=== PATIENT | male | born 1960 | race Caucasian/White ===

== ENCOUNTER → 2017-05-22 | Outpatient (CLI) | payer BC ==
[~2017-05-22] MED LIST: AMLO10TA2 PO; ASPI-630 PO; DOCU-109 PO; DULO60CA6 PO; HYDR-2762 PO; METH-38 PO
--- NOTE | 2017-05-22 15:25 | EKG ---
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
[2017-05-22 16:05] LABS: BASO # 0.1 x10^3/uL (0.0-0.2); BASO % 1 % (0-3); EOS % 2 % (0-3); HEMATOCRIT 48.1 % (39.0-53.0); HEMOGLOBIN 16.3 g/dL (13.0-17.5); LYMPH # 2.3 x10^3/uL (1.0-4.8); LYMPH % 30 % (24-48); MEAN CORPUSCULAR HEMOGLOBIN 31 pg (25-35); MEAN CORPUSCULAR HGB CONC 34 g/dL (31-37); MEAN CORPUSCULAR VOLUME 93 fL (79-100); MONO % 12 % (0-9); NEUT % 55 % (31-73); PLATELET COUNT 282 x10^3/uL (140-400); RED CELL DISTRIBUTION WIDTH 12.8 % (11.5-14.5); WHITE BLOOD COUNT 7.7 x10^3/uL (4.0-11.0)
[2017-05-22 16:53] LABS: ALBUMIN 4.3 g/dL (3.4-5.0); ALBUMIN/GLOBULIN RATIO 1.2 (1.0-1.7); CALCIUM 8.8 mg/dL (8.5-10.1); CREATININE 1.2 mg/dL (0.7-1.3); POTASSIUM 3.7 mmol/L (3.5-5.1); TOTAL BILIRUBIN 0.9 mg/dL (0.2-1.0)
== END | disposition home or self-care (01) ==
LOC: SURGPAT 13:49
PROVIDERS: ATTEND Neurological Surgery
DX: M48.06 Spinal stenosis, lumbar region (principal)
CPT/HCPCS: 36415; 80053; 85027; 87641; 93005

== ENCOUNTER 2017-06-01 07:01 | Day surgery (SDC) | payer OTHER ==
[~2017-06-01] VITALS: Ht 190.5 cm; Wt 107.5 kg
[~2017-06-01 07:01] MED LIST changes: +BACITRACIN 50,000 UNIT in IV NORMAL SALINE 1000ML BAG 1,000 ML IRR ONE; -DOCU-109 PO; -HYDR-2762 PO; +HYDROmorphone 2 MG/ML VIAL IV PRN; +IV RINGERS,LACTATED 1000ML 1,000 ML IV SCH; +LIDOCAINE 1% 1 ML SYRINGE. ID PRN; -METH-38 PO; +MORPHINE SULFATE 2 MG/ML DISP.SYRIN. IV PRN; +ONDANSETRON PF 4 MG/2 ML VIAL. IV PRN; +PROCHLORPERAZINE 10 MG/2 ML VIAL. IV PRN; +fentaNYL PF VIAL 100 MCG/2 ML VIAL IV PRN
[2017-06-01] MEDS ORDERED: PROPOFOL 100 ML IV ONE (07:19)
[2017-06-01] MEDS ORDERED: PROPOFOL 20 ML IV ONE (07:24)
[2017-06-01] MEDS ORDERED: fentaNYL PF VIAL 100 MCG/2 ML VIAL ONE ×2 (07:24→10:58)
[2017-06-01] MEDS ORDERED: SUCCINYLCHOLINE 200 MG/10 ML VIAL. ONE (07:24)
[2017-06-01] MEDS ORDERED: LIDOCAINE 2% PF Vial for OR 5 ML VIAL. ONE (07:24)
[2017-06-01] MEDS ORDERED: REMIFENTANIL 2 MG VIAL. IV ONE (07:24)
[2017-06-01] MEDS ORDERED: 0.9 % SODIUM CHLORIDE 50 ML VIAL. IJ ONE (07:24)
[2017-06-01] MEDS ORDERED: GELATIN SPONGE SIZE 100. ONE (07:25)
[2017-06-01] MEDS ORDERED: ROCURONIUM 50 MG/5 ML VIAL. ONE (07:25)
[2017-06-01] MEDS ORDERED: BUPIVACAINE-EPI 0.5%-1:200000 50 ML VIAL. ONE (07:25)
[2017-06-01] MEDS ORDERED: KETOROLAC 60 MG/2 ML INJ FOR OR. ONE (07:25)
[2017-06-01] MEDS ORDERED: THROMBIN TOPICAL 20,000 UNIT SPRAY.SYRN KIT TP ONE (07:25)
[2017-06-01] MEDS ORDERED: DESFLURANE > 120 MINUTES IH ONE (08:54)
[2017-06-01] MEDS ORDERED: DEXAMETHASONE SOD PHOS 20 MG/5 ML VIAL. ONE (08:54)
[2017-06-01] MEDS ORDERED: ONDANSETRON PF 4 MG/2 ML VIAL. ONE (08:58)
--- NOTE | 2017-06-01 10:45 | DISCH ---
DISCHARGE INSTRUCTIONS Condition on Discharge Condition on Discharge: Stable Activity After Discharge Activity Instructions for Disc: Activity as tolerated, Avoid exertion Other activity instructions: no driving for a week Bathing Instructions: Shower-keep dressing dry Lifting Instructions after Dis: No heavy lifting, No pulling or pushing Diet after Discharge Additional Diet Restrictions: resume home diet Wound Incision Care Wound/Incision Care: Ice to area for comfort Other wound/incision instructi: may remove dressing in 48 hrs if dry then may shower- no soaking Contacting the after DC Call your doctor for: Concerns you may have Follow-Up Follow up with: Dr. Teixeira's nurse in 2 weeks [phone] OLY TEIXEIRA MD Jun 01, 2017 10:45
[2017-06-01] MEDS ORDERED: METH-38 PO (10:49)
[2017-06-01] MEDS ORDERED: HYDR-2762 PO (10:49)
[2017-06-01] MEDS ORDERED: DOCU-109 PO (10:49)
[2017-06-01] MEDS ORDERED: HYDROcodone/APAP 7.5/325MG 1 TAB TABLET PO ONE (11:15)
[2017-06-01 12:12] VITALS: BP 148/80
[2017-06-01] MEDS ORDERED: PHENYLEPHRINE in 0.9% NACL PF 1 MG/10 ML DISP.SYRIN. IV ONE (14:06)
--- NOTE | 2017-06-01 22:01 | OP ---
DATE OF SURGERY: 06/01/2017 PREOPERATIVE DIAGNOSIS: Lateral recess stenosis with lumbar radiculopathy, L2-L3 bilateral. POSTOPERATIVE DIAGNOSIS: Lateral recess stenosis and for with lumbar radiculopathy, L2-L3 bilateral. OPERATION PERFORMED: Bilateral hemilaminotomies with decompression of dura and nerve root L3-L4. The operation was done with EMG monitoring, fluoroscopy, microscopic dissection. TYPER: JOSE Leroy, assisted with the surgery, she assisted with the exposure of the bilateral microdecompressive surgery as well as the closure. OPERATIVE INDICATIONS: The patient is a very pleasant 57-year-old man who developed intractable back and first right and bilateral leg pain, which became more and more severe. On imaging studies, he has the above-mentioned findings and I recommended lumbar microsurgery. There was some disk bulging as well, which was contributing to the overall stenosis and I did discuss the possible microdiskectomy. He understood the surgery and the risks. He understood the technique of the operation and he wished to go ahead. DESCRIPTION OF PROCEDURE: Following general endotracheal anesthesia, the patient was positioned prone on the David table. His lumbar region was prepped and draped in standard fashion. JASON hose and AV impulse boots were applied for DVT prophylaxis. A microscope was draped. Fluoroscopy was draped and brought into field. Monitoring was established. Ancef 2 g was given less than 1 hour prior to initiation of the surgery. Using fluoroscopic guidance, a small midline incision was made over the L2-L3 interspace. I dissected down through the skin and subcutaneous tissue and placed a Billings micro disk retractor on the left side. I brought in the microscope. Using high speed air drill, I burred down a generous hemilaminotomy and then trimmed away thickened ligamentum flavum and I performed a partial foraminotomy. There was considerable scarring and compression of the root over the disk and I gently retracted the root medially. There was mild disk bulging, but the disk was extremely firm. I did not feel a diskectomy was warranted. At this point, I did use bipolar cautery as well as bone wax, obtained hemostasis and then I irrigated copiously. I removed the retractor from this side and obtained hemostasis in the muscle and then performed the identical operation on the contralateral side. At this level, there appeared to be somewhat more compression. The ligamentum was slightly thicker and the lateral recess stenosis appears slightly worse and more dense. I removed all of this stenosis again with the microscope using microscopic technique. I did retract the dura medially as well as the nerve root and I palpated the disk, which was again very firm and no diskectomy was warranted. At this point, I had an excellent decompression bilaterally. I was quite pleased. I did use bipolar cautery as well as small amounts of bone wax judiciously. I irrigated copiously. I then closed the wound in layers after hemostasis was perfect. The skin was closed with 4-0 subcuticular stitch. The operation went very well and the patient was taken to recovery room in excellent condition. I was quite pleased with the surgery. OLY TEIXEIRA MD DR: CARROL/juan carlos JOB#: [id number] / [id number]
--- NOTE | 2017-06-02 16:05 | PATHOLOGY ---
PATHOLOGY REPORT * * * * * * * * FINAL DIAGNOSIS: Segments of fibrocartilaginous, fibroadipose, and skeletal muscle tissue and bone, lumbar decompression: - Degenerative changes of fibrocartilaginous tissue. COMMENT: There is no evidence of an acute inflammatory process or malignancy. (JPM:mgr; 06/02/2017) REPORT ELECTRONICALLY SIGNED BY: Mazin Hein M.D. DATE/TIME: 06/02/2017 16:05 * * * * * * * * GROSS PATHOLOGY: Received in formalin labeled "Francisco Roblero, lumbar decompression" are multiple segments of rodriguez, rubbery, and gritty tissue admixed with bone. The specimen measures 2.8 x 2.5 x 0.9 cm in aggregate dimensions. The tissue is submitted representatively in cassette A1, following decalcification. (JPM; 06/01/17) INITIAL CPT CODE(S): A; 40154, 33515 Professional services performed [place] [facility] [place] [address] Technical services performed by [facility] at [address] [place] [address]. SPECIMEN(S) RECEIVED: A.Lumbar decompression CLINICAL HISTORY: Lumbar stenosis PATIENT: FRANCISCO ROBLERO /AGE: 6 1960 (Age: 57) PATIENT #: [id number] ALT CASE #: SPECIMEN COLLECTION DATE: 06/01/2017 SPECIMEN RECEIVED DATE: 06/01/2017 [facility] - [address] [place] [address] - PHONE: [phone] * * * END OF REPORT * * *
== END 2017-06-01 12:33 | disposition home or self-care (01) ==
LOC: SURG 07:01 → EDUNIT# 08:30 → SURG 12:33
PROVIDERS: ATTEND Neurological Surgery
DX: M48.06 Spinal stenosis, lumbar region (principal); M54.16 Radiculopathy, lumbar region; E78.00 Pure hypercholesterolemia, unspecified; I10 Essential (primary) hypertension; Z87.01 Personal history of pneumonia (recurrent); Z86.39 Personal history of other endocrine, nutritional and metabolic disease; Z86.14 Personal history of Methicillin resistant Staphylococcus aureus infection; Z87.39 Personal history of other diseases of the musculoskeletal system and connective tissue
CPT/HCPCS: 63047; 76000; 97161; J0330; J1100; J1885; J2001; J2370; J2405; J2704; J3010; J3490; J7030; 88304; 88311

== ENCOUNTER → 2018-05-14 | Outpatient (CLI) | payer OTHER ==
[2018-05-14 10:15] LABS: ADD MAN DIFF? NO
[2018-05-14 10:18] LABS: BASO # 0.1 x10^3/uL (0.0-0.2); BASO % 1 % (0-3); EOS # 0.2 x10^3/uL (0.0-0.7); EOS % 3 % (0-3); HEMATOCRIT 46.4 % (39.0-53.0); HEMOGLOBIN 16.2 g/dL (13.0-17.5); LYMPH # 2.4 x10^3/uL (1.0-4.8); LYMPH % 36 % (24-48); MEAN CORPUSCULAR HEMOGLOBIN 31 pg (25-35); MEAN CORPUSCULAR HGB CONC 35 g/dL (31-37); MEAN CORPUSCULAR VOLUME 90 fL (79-100); MONO # 0.7 x10^3/uL (0.0-1.1); MONO % 11 % (0-9); NEUT # 3.1 x10^3uL (1.8-7.7); NEUT % 48 % (31-73); PLATELET COUNT 321 x10^3/uL (140-400); RED BLOOD COUNT 5.18 x10^6/uL (4.30-5.70); RED CELL DISTRIBUTION WIDTH 12.9 % (11.5-14.5); WHITE BLOOD COUNT 6.5 x10^3/uL (4.0-11.0)
[2018-05-14 10:37] LABS: ALBUMIN/GLOBULIN RATIO 1.1 (1.0-1.7); ALK PHOS 118 U/L (46-116); ALT (SGPT) 41 U/L (16-63); ANION GAP 7 (6-14); AST (SGOT) 23 U/L (15-37); BLOOD UREA NITROGEN 15 mg/dL (8-26); BUN/CREATININE RATIO 14 (6-20); CALCIUM 9.3 mg/dL (8.5-10.1); CARBON DIOXIDE 28 mmol/L (21-32); CHLORIDE 103 mmol/L (98-107); CREATININE 1.1 mg/dL (0.7-1.3); GFR 68.3; GLUCOSE 91 mg/dL (70-99); POTASSIUM 3.9 mmol/L (3.5-5.1); SODIUM 138 mmol/L (136-145); TOTAL BILIRUBIN 0.6 mg/dL (0.2-1.0); TOTAL PROTEIN 7.5 g/dL (6.4-8.2)
[2018-05-15 01:12] LABS: MRSA BY PCR Negative (Negative)
== END | disposition home or self-care (01) ==
LOC: SURGPAT 09:29
DX: Z01.818 Encounter for other preprocedural examination (principal); M51.16 Intervertebral disc disorders with radiculopathy, lumbar region; M48.062 Spinal stenosis, lumbar region with neurogenic claudication; I10 Essential (primary) hypertension; E78.00 Pure hypercholesterolemia, unspecified
CPT/HCPCS: 36415; 80053; 85025; 87641

== ENCOUNTER 2018-05-21 10:50 | Day surgery (SDC) | payer OTHER ==
[~2018-05-21 10:50] MED LIST changes: -AMLO10TA2 PO; -ASPI-630 PO; -BACITRACIN 50,000 UNIT in IV NORMAL SALINE 1000ML BAG 1,000 ML IRR ONE; -DULO60CA6 PO; -HYDROmorphone 2 MG/ML VIAL IV PRN; -IV RINGERS,LACTATED 1000ML 1,000 ML IV SCH; -LIDOCAINE 1% 1 ML SYRINGE. ID PRN; +LIDOCAINE 1% PF 2 ML VIAL. ID; +MORPHINE SULFATE 2 MG/ML DISP.SYRIN. IV; -MORPHINE SULFATE 2 MG/ML DISP.SYRIN. IV PRN; +ONDANSETRON PF 4 MG/2 ML VIAL. IV; -ONDANSETRON PF 4 MG/2 ML VIAL. IV PRN; +PROCHLORPERAZINE 10 MG/2 ML VIAL. IV; -PROCHLORPERAZINE 10 MG/2 ML VIAL. IV PRN; +ceFAZolin 2GM PREMIX 2 GM/50 ML BAG IV; +fentaNYL PF VIAL 100 MCG/2 ML VIAL IV; -fentaNYL PF VIAL 100 MCG/2 ML VIAL IV PRN
[2018-05-21] MEDS: IV RINGERS,LACTATED 1000ML 1,000 ML IV (11:29)
[2018-05-21] MEDS ORDERED: LIDOCAINE 2% PF Vial for OR 5 ML VIAL. (12:31)
[2018-05-21] MEDS ORDERED: PROPOFOL 20 ML IV (12:31)
[2018-05-21] MEDS ORDERED: ePHEDrine PF IN SALINE 50 MG/5 ML DISP.SYRIN IV (12:32)
[2018-05-21] MEDS ORDERED: PHENYLEPHRINE in 0.9% NACL PF 1 MG/10 ML SYRINGE. IV (12:32)
[2018-05-21] MEDS ORDERED: fentaNYL PF VIAL 100 MCG/2 ML VIAL ×3 (12:32→16:07)
[2018-05-21] MEDS ORDERED: PROPOFOL 50 ML IV ×2 (12:33→14:39)
[2018-05-21] MEDS ORDERED: SUCCINYLCHOLINE 200 MG/10 ML VIAL. (12:33)
[2018-05-21] MEDS ORDERED: REMIFENTANIL 1 MG VIAL. IV ×2 (12:36→14:43)
[2018-05-21] MEDS ORDERED: ROCURONIUM 50 MG/5 ML VIAL. (13:22)
[2018-05-21] MEDS: BACITRACIN 50,000 UNIT in IV NORMAL SALINE 1000ML BAG 1,000 ML IRR (14:19)
[2018-05-21] MEDS: GELATIN SPONGE SIZE 100. (14:19)
[2018-05-21] MEDS: KETOROLAC 60 MG/2 ML INJ FOR OR. (14:19)
[2018-05-21] MEDS: THROMBIN TOPICAL 20,000 UNIT SPRAY.SYRN KIT TP (14:19)
[2018-05-21] MEDS: BUPIVAC MPF-EPI 0.5%-1:200000 30 ML VIAL. INJ (14:19)
[2018-05-21] MEDS ORDERED: PHENYLEPHRINE 10 MG/ML VIAL. ×2 (14:26→14:41)
[2018-05-21] MEDS ORDERED: GLYCOPYRROLATE 1 MG/5 ML VIAL. (15:21)
[2018-05-21] MEDS ORDERED: NEOSTIGMINE METHYLSULFATE 5 MG/5 ML SYRINGE. ×2 (15:21→15:23)
[2018-05-21] MEDS: fentaNYL PF VIAL 100 MCG/2 ML VIAL IV (16:10)
[2018-05-21] MEDS: HYDROcodone/APAP 7.5/325MG 1 TAB TABLET PO (16:30)
== END 2018-05-21 17:15 | disposition home or self-care (01) ==
LOC: SURG 10:50
DX: M51.36 Other intervertebral disc degeneration, lumbar region (principal); M48.061 Spinal stenosis, lumbar region without neurogenic claudication; I10 Essential (primary) hypertension; E78.5 Hyperlipidemia, unspecified; M19.90 Unspecified osteoarthritis, unspecified site; E66.9 Obesity, unspecified; Z68.31 Body mass index [BMI] 31.0-31.9, adult; Z98.890 Other specified postprocedural states; F17.210 Nicotine dependence, cigarettes, uncomplicated; Z72.89 Other problems related to lifestyle; Z79.82 Long term (current) use of aspirin; Z79.899 Other long term (current) drug therapy; Z86.14 Personal history of Methicillin resistant Staphylococcus aureus infection
CPT/HCPCS: 63030; 76000; 88304; 88311; 97161-GP; A7015; J0330; J0690; J1885; J2001; J2370; J2704; J2710; J3010; J3490; J7030; J7120

== ENCOUNTER → 2018-10-03 | Outpatient (CLI) | payer OTHER ==
[2018-05-21 17:08] VITALS: BP 151/93
[~2018-10-03] MED LIST changes: +AMLO10TA6 PO; +ASPI-630 PO; +DOCU-109 PO; +DULO60CA6 PO; +HYDR-2765 PO; +HYDR12.58 PO; -LIDOCAINE 1% PF 2 ML VIAL. ID; +METH-38 PO; -MORPHINE SULFATE 2 MG/ML DISP.SYRIN. IV; -ONDANSETRON PF 4 MG/2 ML VIAL. IV; -PROCHLORPERAZINE 10 MG/2 ML VIAL. IV; -ceFAZolin 2GM PREMIX 2 GM/50 ML BAG IV; -fentaNYL PF VIAL 100 MCG/2 ML VIAL IV
--- NOTE | 2018-10-03 11:15 | KCIC ---
MRI Lumbar Spine without contrast History: Bilateral lumbar radiculopathy, stenosis, previous surgeries Technique: Multiplanar, multi sequential noncontrast MR imaging was performed of the lumbar spine. Comparison: None Findings: Lumbar vertebral body stature is preserved. There is minimal posterior subluxation L3 relative L4 and L2 relative L3. There is moderate to severe degenerative disc disease greater on the left at L4-5, moderate degenerative disease at L2-3 and to lesser degree at L3-4. There is degenerative endplate change L4-5. There is hemangioma of the L4 vertebral body, smaller foci of L2, L1, and L5. There is trace posterior L3-4 endplate edema likely reactive/degenerative in etiology. Conus terminates at T12. L2-L3: There is right laminectomy defect. There is moderate to severe facet degenerative change. There is broad posterior bulge/protrusion. Spinal canal is adequate. There is mild left and nqcj-bn-qywwyevu right neural foramina compromise. Disc osteophyte complex and bulge contacts the undersurface of the proximal extraforaminal right L2 nerve root without significant displacement. L3-L4: There is right laminectomy defect. There is disc osteophyte complex, superimposed shallow protrusion more eccentric to the right lateral recess with associated annular tear. There is moderate facet degenerative change. There is mild buckling of the residual left ligamentum flavum. There is prjn-px-celfxbfk narrowing of the right lateral recess, contact of the descending right L4 nerve root. There is ktzg-bo-yuipaxfa narrowing of the left neural foramen by disc osteophyte complex and facet degenerative change, mild narrowing on the right by disc osteophyte complex. L4-L5: There are laminectomy defects bilaterally. There is mild facet hypertrophic change. There is disc osteophyte complex. Spinal canal is adequate. There is mild neural foramina compromise bilaterally. L5-S1: There is left laminectomy defect. There is mild facet degenerative change greater on the right. Spinal canal is adequate. Neural foramina are adequate. Impression: 1. There is degenerative disc disease greatest L2-3 and L4-5, mild spondylosis. There is dffw-lt-rqcopzkv right lateral recess stenosis at L3-4 with contact descending right L4 nerve root, right laminectomy defect at this level. There is neural foramina compromise as stated greatest on the left at L3-4 and on the right at L2-3. There is multilevel lumbar facet degenerative change. There are laminectomy defects as stated. Electronically signed by: Arden Guerra MD (10/03/2018 11:12 AM) [facility]-[email or web address]
--- NOTE | 2018-10-03 16:50 | KCIC ---
Lateral lumbar spine,, 3 views, 10/03/2018: HISTORY: Lumbar radiculopathy, stenosis Lateral views of lumbar spine were obtained in neutral, flexion and extension. There is moderate disc space narrowing at L4-5 with anterior and posterior marginal spurring. Moderate spurs are also present at multiple other levels in the lumbar spine. There is moderate facet joint arthropathy at multiple levels in the lower lumbar spine. No fracture or subluxation is seen. No instability was identified with flexion and extension. This limited exam is otherwise unremarkable. IMPRESSION: 1. Moderate multilevel degenerative change as described above. 2. No significant instability is seen with flexion and extension Electronically signed by: Иван Wagner MD (10/03/2018 4:46 PM) [facility]
== END | disposition home or self-care (01) ==
LOC: KCIC MRI 09:48
PROVIDERS: ATTEND Neurological Surgery
DX: M51.36 Other intervertebral disc degeneration, lumbar region (principal); M47.896 Other spondylosis, lumbar region; M48.061 Spinal stenosis, lumbar region without neurogenic claudication; M25.78 Osteophyte, vertebrae
CPT/HCPCS: 72100; 72148

== ENCOUNTER → 2019-06-17 | Outpatient (CLI) | payer OTHER ==
[2018-05-21 17:08] VITALS: BP 151/93
[~2019-06-17] MED LIST changes: -AMLO10TA6 PO; +AMLO10TA8 PO
--- NOTE | 2019-06-17 16:46 | KCIC ---
LUMBAR SPINE WO CONTRAST History: Radicular back pain. Prior back pain surgery. Technique: Multiplanar, multi sequential MR imaging was performed of the lumbar spine. Comparison: October 03, 2018 Findings: Minimal retrolisthesis L2 on L3 and L3 on L4, unchanged. Normal vertebral body height. No fracture. L2 and L4 vertebral body hemangiomas, unchanged. Multilevel degenerative endplate changes with slight degenerative endplate edema L3-L4. Conus terminates at the normal location. No evidence of nerve root clumping. L1-L2: No canal or neuroforaminal narrowing. L2-L3: Broad-based posterior disc bulge. Prior right hemilaminectomy. Moderate facet arthropathy. Mild subarticular recess narrowing. Moderate right and mild left neural foraminal narrowing. L3-L4: Postoperative changes right hemilaminectomy. Broad-based posterior disc bulge with right subarticular annular fissure. Moderate facet arthropathy. Bilateral subarticular recess narrowing. There is abutment of the bilateral descending L4 nerve roots. Moderate left and mild right neuroforaminal narrowing. L4-L5: Disc height loss. Bilateral laminectomies. No canal narrowing. Moderate facet arthropathy. Mild to moderate right and mild left neural foraminal narrowing. L5-S1: Postop changes left laminectomy. Small posterior disc bulge. Moderate facet arthropathy. No canal narrowing. No neural foraminal narrowing. Impression: 1. Multilevel postoperative changes. 2. Multilevel lumbar spondylosis with subarticular recess narrowing most prominent at L2-L3 and L3-L4, unchanged. 3. Multilevel neural foraminal narrowing most prominent right L2-L3, left L3-L4 and right L4-L5, unchanged. Electronically signed by: Erasmo Cardenas DO (06/17/2019 4:43 PM) [facility]
== END | disposition home or self-care (01) ==
LOC: KCIC MRI 15:23
PROVIDERS: ATTEND Neurological Surgery
DX: M47.26 Other spondylosis with radiculopathy, lumbar region (principal); M48.061 Spinal stenosis, lumbar region without neurogenic claudication; M46.87 Other specified inflammatory spondylopathies, lumbosacral region; M51.16 Intervertebral disc disorders with radiculopathy, lumbar region; D18.09 Hemangioma of other sites; Z98.890 Other specified postprocedural states
CPT/HCPCS: 72148

== ENCOUNTER → 2019-07-01 | Outpatient (CLI) | payer OTHER ==
[2018-05-21 17:08] VITALS: BP 151/93
[~2019-07-01] MED LIST changes: +IOHEXOL 180 MG/ML 10 ML VIAL. IT ONE; +LIDOCAINE 1% Multi-Dose 20 ML VIAL. ID ONE
--- NOTE | 2019-07-01 16:09 | KCIC ---
CT lumbar spine exam History: Lumbar radiculopathy, previous back surgeries, low back pain into the right leg Technique: CT imaging was performed of the lumbar spine after injection for lumbar myelogram. Multiplanar reconstruction images are submitted. Exposure: One or more of the following individualized dose reduction techniques were utilized for this examination: 1. Automated exposure control 2. Adjustment of the mA and/or kV according to patient size 3. Use of iterative reconstruction technique. Comparison: June 17, 2019 MR lumbar spine exam Findings: Lumbar vertebral body stature is maintained. There is very minimal posterior subluxation L3 relative to L4. There is fairly advanced degenerative disc disease greater on the left at L4-5 with associated vacuum disc disease, mild to moderate narrowing at L2-3 and to lesser degree at L3-4. There is mild dextroscoliosis centered near L4-5. There is very mild right lateral subluxation L4 relative to L5 and very mild left lateral subluxation L3 relative to L4 and L2 relative to L3. T12-L1: Spinal canal and neural foramina are adequate. There is mild facet hypertrophic change. L1-L2: Neural foramina and spinal canal are adequate. There is moderate facet hypertrophic change. L2-L3: There is left L2 spondylolysis. There is fairly severe facet degenerative change. There is right laminectomy defect. There is disc osteophyte complex, superimposed calcified bulge. There is mild indentation upon the ventral thecal sac diffusely, spinal canal not significantly narrowed. Left neural foramen is adequate. There is mild narrowing of the right neural foramen greater distally by facet and disc osteophyte complex, disc osteophyte complex contacting the extraforaminal right L3 nerve root with mild displacement. L3-L4: There is moderate to severe facet degenerative change. There is mild buckling of the ligamentum flavum on the left. There is right laminectomy defect. There is minimal bulge superimposed on the posteriorly subluxed L3 vertebral body margin. There is also superimposed more prominent noncalcified density, likely protrusion/contained extrusion, in the right lateral recess estimated about 0.6 cm AP by about 0.8 cm transverse by 0.6 cm cc. There is indentation upon the ventral thecal sac in the far right lateral recess with fairly severe right lateral recess stenosis and impingement of the descending right L4 nerve root. There is moderate narrowing of the left neural foramen primarily from facet. There is minimal narrowing of the right neural foramen. There is contact of the extraforaminal right L3 nerve root by disc osteophyte complex without displacement. L4-L5: There is moderate to severe facet degenerative change bilaterally. There are laminectomy defects. There is minimal disc osteophyte complex. Spinal canal is adequate. Left neural foramen is adequate, disc osteophyte complex near the extraforaminal left L4 nerve root. There is mild narrowing of the right neural foramen. L5-S1: There is moderate to severe facet degenerative change. Spinal canal and the neural foramina are adequate. Impression: 1. There is more focal noncalcified density, most likely protrusion/contained extrusion in the right lateral recess at L3-4 with right lateral recess stenosis and impingement of the descending right L4 nerve root. 2. There is multilevel lumbar facet degenerative change. There is minimal posterior subluxation of L3 relative to L4, mild abnormal lateral alignment as stated. There is mild dextroscoliosis of the lumbar spine. 3. There is multilevel degenerative disc disease greatest at L4-5. 4. There is moderate narrowing of the left L3-4 neural foramen, minimal narrowing on the right at L2-3, L3-4, and L4-L5. There is degree of contact of the extraforaminal nerve roots as stated. 5. There is left L2 spondylolysis. Electronically signed by: Arden Guerra MD (07/01/2019 4:06 PM) [facility]
--- NOTE | 2019-07-01 16:15 | KCIC ---
Lumbar Myelogram History: Chronic low back pain into the right leg Technique: Patient was informed of the risks of the procedure to include pain, infection, bleeding, seizures, nerve root injury, and allergic reaction to the contrast. All questions were answered. Patient signed a written consent form for a lumbar myelogram. The patient was placed in a prone oblique position on the fluoroscopy table. External site of the lower back was prepped and draped in the usual sterile fashion. Betadine was utilized for cleansing solution. 1% lidocaine was utilized for local anesthesia at the anticipated site of puncture right T12-L1 interlaminar space. A 19-gauge guiding needle was advanced into the soft tissues. Through the guiding needle, a 25 gauge Gina needle was advanced until there was return of cerebral spinal fluid. Approximately 15 cc of Omnipaque 180 were then injected during fluoroscopic visualization. The needles were removed. Fluoroscopic spot images including standing images were acquired of the lumbar spine. The patient was then transferred to the CT department for CT examination of the lumbar spine. There were no immediate complications. Fluoroscopy time: 1 minute 40 seconds, 22 images Findings: There was no evidence of myelographic block. There is degenerative disc disease greatest at L4-5. There are anterior extradural defects L2-3 and L3-4, more eccentric to the right at L3-4. There is negligible posterior subluxation L3 relative to L4 slightly accentuated with extension, also negligible posterior subluxation L2 relative L3 with extension. Impression: 1. There are anterior extradural defects at L2-3 and L3-4, more eccentric to the right L3-4. There is mild abnormal alignment as stated. There is degenerative disc disease greatest at L4-5. Electronically signed by: Arden Guerra MD (07/01/2019 4:12 PM) [facility]
== END | disposition home or self-care (01) ==
LOC: KCIC 13:06
PROVIDERS: ATTEND Neurological Surgery
DX: M51.16 Intervertebral disc disorders with radiculopathy, lumbar region (principal); M48.061 Spinal stenosis, lumbar region without neurogenic claudication; M47.27 Other spondylosis with radiculopathy, lumbosacral region; M25.78 Osteophyte, vertebrae; G89.29 Other chronic pain; I10 Essential (primary) hypertension
CPT/HCPCS: 72132; 72265; Q9965

== ENCOUNTER → 2019-08-16 | Outpatient (CLI) | payer OTHER ==
[2018-05-21 17:08] VITALS: BP 151/93
[~2019-08-16] MED LIST changes: +DOCU100C28 PO; -IOHEXOL 180 MG/ML 10 ML VIAL. IT ONE; -LIDOCAINE 1% Multi-Dose 20 ML VIAL. ID ONE; +LOSA-73 PO; +METH750T2 PO; +OXYC1TAB15 PO
[2019-08-16 14:35] LABS: BASO # 0.1 x10^3/uL (0.0-0.2); BASO % 1 % (0-3); EOS # 0.2 x10^3/uL (0.0-0.7); EOS % 3 % (0-3); HEMATOCRIT 45.5 % (39.0-53.0); HEMOGLOBIN 15.6 g/dL (13.0-17.5); LYMPH # 2.2 x10^3/uL (1.0-4.8); LYMPH % 31 % (24-48); MEAN CORPUSCULAR HEMOGLOBIN 31 pg (25-35); MEAN CORPUSCULAR HGB CONC 34 g/dL (31-37); MEAN CORPUSCULAR VOLUME 91 fL (79-100); MONO # 0.7 x10^3/uL (0.0-1.1); MONO % 9 % (0-9); NEUT # 4.1 x10^3/uL (1.8-7.7); NEUT % 56 % (31-73); PLATELET COUNT 378 x10^3/uL (140-400); RED BLOOD COUNT 5.02 x10^6/uL (4.30-5.70); RED CELL DISTRIBUTION WIDTH 12.7 % (11.5-14.5); WHITE BLOOD COUNT 7.2 x10^3/uL (4.0-11.0)
[2019-08-16 14:49] LABS: PROTHROMBIN TIME PATIENT 12.8 SEC (11.7-14.0)
[2019-08-16 14:51] LABS: ALBUMIN 3.8 g/dL (3.4-5.0); CALCIUM 9.6 mg/dL (8.5-10.1); CREATININE 1.1 mg/dL (0.7-1.3); GFR 68.1; POTASSIUM 3.5 mmol/L (3.5-5.1); TOTAL BILIRUBIN 0.6 mg/dL (0.2-1.0); TOTAL PROTEIN 7.5 g/dL (6.4-8.2)
== END | disposition home or self-care (01) ==
LOC: SURGPAT 13:00
PROVIDERS: ATTEND Neurological Surgery
DX: Z01.818 Encounter for other preprocedural examination (principal); M51.16 Intervertebral disc disorders with radiculopathy, lumbar region
CPT/HCPCS: 36415; 80053; 82306; 85025; 85610; 85730; 87641

== ENCOUNTER 2019-08-19 08:30 | Inpatient (IN) | payer OTHER ==
[~2019-08-19] VITALS: Ht 190.5 cm; Wt 117.0 kg
[~2019-08-19 08:30] MED LIST changes: -DOCU100C28 PO; -METH750T2 PO; -OXYC1TAB15 PO
[2019-08-21] MEDS ORDERED: BUPIVACAINE-EPI 0.5%-1:200000 MPF 30 ML VIAL. INJ ONE (13:45)
--- NOTE | 2019-08-21 13:54 | HP ---
ADMIT DATE: 08/22/2019 DATE OF SURGERY: 08/22/2019 HISTORY OF PRESENT ILLNESS: The patient is a pleasant 59-year-old who has difficulty with low back pain and pain which radiates into the right anterior thigh. Occasionally, the pain can radiate into the right anterior leg. He says the pain is virtually always a 4/10. Virtually, any activity increases his pain. Sitting on his left side helps him. He has been taking [place]. He has had epidural steroid injections as well as physical therapy for this problem. I studied him with myelography. PAST MEDICAL HISTORY: Chest pains, headaches and migraines, hypertension, MRSA infection, and tumors or growth. PAST SURGICAL HISTORY: Two prior lumbar surgeries in 2007 and 2009, tumor removal in 2012, lumbar surgery in 2013, lumbar surgery in 2014, right shoulder bone spur in 2015, lumbar decompression at L2-3 bilateral in 05/2017, and lumbar microdecompression with microdiskectomy at L3-4 on the right in 05/2018. FAMILY HISTORY: Cancer, heart problems and disease, hypertension, and spine problems. SOCIAL HISTORY: He is retired. . Rarely exercises. Denies substance abuse. Quit smoking greater than 20 years ago. Drinks alcohol 1-2 drinks per day. Drinks coffee daily. ALLERGIES: No known drug allergies. CURRENT MEDICATIONS: Cymbalta, amlodipine, Sienna aspirin, Advil, and [place]. REVIEW OF SYSTEMS: A 12-point review of systems was obtained and is noncontributory except for that mentioned above. PHYSICAL EXAMINATION: NEUROSURGERY EXAMINATION: GENERAL APPEARANCE: Alert, pleasant, and no acute distress. HEAD: Normocephalic and atraumatic. SKIN: Warm and dry. A well-healed lumbar incision. MUSCULOSKELETAL: Lumbar paraspinal muscle bulk is normal. Restricted range of motion of the lower lumbar spine. Pbuv-kr-cnrnzoeq tenderness of lower lumbar spine with palpation. Normal range of motion of the lower extremities bilaterally. EXTREMITIES: No clubbing, cyanosis, or edema. NEUROLOGIC: Alert and oriented x 3. Normal recent and remote memory. Strength 5/5 in bilateral lower extremities. Sensory is intact to light touch in lower extremities bilaterally. Reflexes are present and symmetric in bilateral lower extremities. Negative straight leg raising bilaterally. Normal gait. IMAGING: I reviewed a lumbar myelogram. There is a recurrent disc herniation at L3-4 on the right with nerve root compression. Additionally, at L2-3, there is a disc osteophyte complex on the right neural foramen, which does contact the right L2 nerve root. ASSESSMENT/ PLAN: The patient has undergone a total of 6 lumbar microsurgeries. He has had the most recent surgery in 05/2019. Following that, he did well for about 6 months and then develop recurrent pain which has progressed to the present time. At this point, he should undergo surgery at L3-4 on the right to remove the recurrent disc herniation. Based on the number of surgeries he has had, he should also have an instrumented fusion including interbody fusion at this level as well. Because there is a disk in the foramen at L2-3 on the right and evidence of contact at the right L2 nerve root, I would decompress that region as well. This would require a facet foraminal exposure. I would therefore include the instrumented fusion. I discussed this with the patient and his in detail including the rationale, technique, risks, and expected postoperative course. They would like to go ahead. We will make the arrangements. OLY TEIXEIRA MD DR: CARROL/juan carlos JOB#: [id number] / [id number] [place]
[2019-08-22] VITALS (8 sets, daily range): BP systolic 119–139; BP diastolic 72–91
[2019-08-22] MEDS ORDERED: BACITRACIN 50,000 UNIT in IV NORMAL SALINE 1000ML BAG 1,000 ML IRR ONE (06:00)
[2019-08-22] MEDS ORDERED: DULO60CA6 PO (06:28)
[2019-08-22] MEDS ORDERED: KETOROLAC 60 MG/2 ML VIAL. ONE (07:00)
[2019-08-22] MEDS ORDERED: GELATIN SPONGE SIZE 12-7MM SPONGE. ONE ×4 (07:00→07:01)
[2019-08-22] MEDS ORDERED: HYDROmorphone 2 MG/ML VIAL IV PRN (07:00)
[2019-08-22] MEDS ORDERED: ONDANSETRON PF 4 MG/2 ML VIAL. IV PRN ×2 (07:00→13:45)
[2019-08-22] MEDS ORDERED: THROMBIN TOPICAL 20,000 UNIT SPRAY.SYRN KIT TP ONE (07:00)
[2019-08-22] MEDS ORDERED: fentaNYL PF VIAL 100 MCG/2 ML VIAL IV PRN ×2 (07:00)
[2019-08-22] MEDS ORDERED: IV RINGERS,LACTATED 1000ML 1,000 ML IV SCH (07:00)
[2019-08-22] MEDS ORDERED: PROCHLORPERAZINE 10 MG/2 ML VIAL. IV PRN (07:00)
[2019-08-22] MEDS ORDERED: MORPHINE SULFATE 2 MG/ML VIAL. IV PRN (07:00)
[2019-08-22] MEDS ORDERED: PROPOFOL 200 ML IV ONE (08:00)
[2019-08-22] MEDS ORDERED: fentaNYL PF VIAL 100 MCG/2 ML VIAL ONE (08:11)
[2019-08-22] MEDS ORDERED: ONDANSETRON PF 4 MG/2 ML VIAL. ONE (08:11)
[2019-08-22] MEDS ORDERED: REMIFENTANIL 2 MG VIAL. IV ONE ×2 (08:11→10:34)
[2019-08-22] MEDS ORDERED: DEXAMETHASONE SOD PHOS 20 MG/5 ML VIAL. ONE (08:11)
[2019-08-22] MEDS ORDERED: LIDOCAINE 2% PF 5 ML VIAL. ONE (08:11)
[2019-08-22] MEDS ORDERED: MIDAZOLAM HCL/PF 2 MG/2 ML VIAL. ONE (08:11)
[2019-08-22] MEDS ORDERED: PHENYLEPHRINE 10 MG/ML VIAL. ONE ×2 (08:11→12:06)
[2019-08-22] MEDS ORDERED: PROPOFOL 20 ML IV ONE (08:11)
[2019-08-22] MEDS ORDERED: ROCURONIUM 50 MG/5 ML VIAL. ONE (08:11)
--- NOTE | 2019-08-22 08:41 | RAD ---
EXAM: CT lumbar spine without IV contrast CLINICAL HISTORY:Low back pain COMPARISON: None available. TECHNIQUE: Helical CT was performed through the lumbar spine. Axial, coronal and sagittal reformatted images were generated. PQRS compliance statement - One or more of the following individualized dose reduction techniques were utilized for this study: 1. Automated exposure control 2. Adjustment of the mA and/or kV according to patient size 3. Use of iterative reconstruction technique FINDINGS: There are 5 nonrib-bearing lumbar-type vertebral bodies. Vertebral body heights are preserved. Mild L2-3 and moderate L4-5 disc height loss. There is approximately 2 mm retrolisthesis of L3 on L4. Anterior endplate osteophytes are seen at multiple levels. Mild facet degenerative changes at L2-3 and below. Lucency through the left L2 pars interarticularis may represent pars defect or old fracture given the cortication of the margins. T12-L1: No significant thecal sac deformity or neural foraminal narrowing. L1-L2: No significant thecal sac deformity or neural foraminal narrowing. L2-L3: Generalized disc bulge with associated disc calcification, ligamentum flavum hypertrophy and facet degenerative changes results in moderate central canal stenosis with mild left and ykxm-ui-ijwwfipg right neural foraminal narrowing. L3-L4: Generalized disc bulge, eccentric to the right with likely superimposed paracentral-lateral recess disc protrusion resulting in moderate central canal stenosis and possibly disc material abutting the transiting L4 nerve root. There is moderate left L3-4 and mild right L3-4 neural foraminal narrowing. L4-L5: Dialysis bulge results in mild flattening of the ventral thecal sac and mild left and moderate to severe right neural foraminal narrowing. L5-S1: No significant thecal sac deformity or neural foraminal narrowing. IMPRESSION: 1. Multilevel spondylosis as described in detail above, better delineated on prior myelogram 07/01/2019. 2. No evidence for acute fracture. 3. Trace retrolisthesis of L3 on L4. Electronically signed by: Avery Feng MD (08/22/2019 8:38 AM) [facility]
[2019-08-22] MEDS ORDERED: GLYCOPYRROLATE 1 MG/5 ML VIAL. ONE (09:26)
[2019-08-22] MEDS ORDERED: KETAMINE HCL IN NACL, ISO-OSM 50 MG/5 ML SYRINGE ONE (09:47)
[2019-08-22] MEDS ORDERED: ceFAZolin SODIUM 1 GM VIAL ONE ×2 (12:35)
[2019-08-22] MEDS ORDERED: REMIFENTANIL 1 MG VIAL. IV ONE ×2 (12:37→13:59)
[2019-08-22] MEDS ORDERED: 0.9 % SODIUM CHLORIDE 10 ML DISP.SYRIN. IV PRN (13:45)
[2019-08-22] MEDS ORDERED: CALCIUM CARBONATE 500 MG TAB.CHEW PO PRN (13:45)
[2019-08-22] MEDS ORDERED: NALOXONE 0.4 MG/ML VIAL. IV PRN (13:45)
[2019-08-22] MEDS ORDERED: MAG HYDROX/ALUMINUM HYD/SIMETH 30 ML ORAL.SUSP PO PRN (13:45)
[2019-08-22] MEDS ORDERED: ZOLPIDEM 5 MG TABLET. PO PRN (13:45)
[2019-08-22] MEDS ORDERED: fentaNYL PF VIAL 100 MCG/2 ML VIAL IVP PRN (13:45)
[2019-08-22] MEDS ORDERED: oxyCODONE/APAP 5/325 1 TAB TABLET PO PRN (13:45)
[2019-08-22] MEDS ORDERED: MAGNESIUM HYDROXIDE 2,400 MG/30 ML ORAL.SUSP. PO PRN (13:45)
[2019-08-22] MEDS ORDERED: METHOCARBAMOL 750 MG TABLET PO PRN (13:45)
[2019-08-22] MEDS ORDERED: ACETAMINOPHEN 325 MG TABLET. PO PRN (13:45)
[2019-08-22] MEDS ORDERED: diphenhydrAMINE HCL 25 MG CAPSULE PO PRN (13:45)
[2019-08-22] MEDS: hydroCHLOROthiazide 12.5 MG CAPSULE PO SCH (14:00)
[2019-08-22] MEDS: LOSARTAN POTASSIUM 50 MG TABLET. PO SCH (14:00)
[2019-08-22] MEDS: amLODIPine BESYLATE 10 MG TABLET PO SCH (14:00)
[2019-08-22] MEDS: DULoxetine HCL 30 MG CAPSULE.DR PO SCH (14:00)
[2019-08-22] MEDS ORDERED: PROPOFOL 50 ML IV ONE (14:02)
--- NOTE | 2019-08-22 16:20 | NUR ---
Rec'd from PACU per bed, alert/oriented, posterior lumbar dressing intact with shadowing noted, ice pack place for comfort, bilateral JASON hose & DINORAH in place, IV to bilateral hands patent, states able to feel left foot which he couldn't before, denies any numbness or tingling, oriented to surroundings, spouse & dtr at bedside, see admission, call light within reach, bed alarm activated
[2019-08-22] MEDS: ceFAZolin SODIUM IV Push 1 GM VIAL. IVP SCH (17:00)
[2019-08-22] MEDS: POTASSIUM CL 20MEQ D5-0.45NACL 1,000 ML IV SCH (17:04)
[2019-08-22] MEDS ORDERED: POLYVINYL ALCOHOL 1.4% OPHTH SOLUTION 15ML BOTTLE. OU PRN (18:00)
[2019-08-22] MEDS: DOCUSATE SODIUM 100 MG CAPSULE. PO SCH (20:35)
[2019-08-23 00:05] VITALS: BP 137/87
[2019-08-23] MEDS: ceFAZolin SODIUM IV Push 1 GM VIAL. IVP SCH ×2 (01:49→08:37)
[2019-08-23] MEDS: oxyCODONE/APAP 5/325 1 TAB TABLET PO PRN ×4 (01:55→14:38)
[2019-08-23 03:00] VITALS: BP 149/92
[2019-08-23] MEDS: POTASSIUM CL 20MEQ D5-0.45NACL 1,000 ML IV SCH ×2 (03:04→10:32)
[2019-08-23 06:00] VITALS: BP 124/85
[2019-08-23] MEDS: DULoxetine HCL 30 MG CAPSULE.DR PO SCH (08:36)
[2019-08-23] MEDS: DOCUSATE SODIUM 100 MG CAPSULE. PO SCH (08:36)
[2019-08-23] MEDS: amLODIPine BESYLATE 10 MG TABLET PO SCH (08:36)
[2019-08-23] MEDS: hydroCHLOROthiazide 12.5 MG CAPSULE PO SCH (08:37)
[2019-08-23] MEDS: LOSARTAN POTASSIUM 50 MG TABLET. PO SCH (08:37)
[2019-08-23 10:56] VITALS: BP 116/81
[2019-08-23] MEDS ORDERED: METH750T2 PO (14:11)
[2019-08-23] MEDS ORDERED: DOCU100C28 PO (14:11)
[2019-08-23] MEDS ORDERED: OXYC1TAB15 PO (14:11)
--- NOTE | 2019-08-23 14:12 | DISCH ---
DISCHARGE INSTRUCTIONS Condition on Discharge Condition on Discharge: Stable Activity After Discharge Activity Instructions for Disc: Activity as tolerated, Avoid exertion Other activity instructions: no driving for a week Bathing Instructions: Shower-keep dressing dry Lifting Instructions after Dis: No heavy lifting, No pulling or pushing Diet after Discharge Additional Diet Restrictions: resume home diet Wound Incision Care Wound/Incision Care: Ice to area for comfort Other wound/incision instructi: may remove dressing in 48 hours if dry then may shower, no soaking Contacting the after DC Call your doctor for: Concerns you may have Follow-Up Follow up with: Dr. Teixeira's nurse in 2 weeks [phone] OLY TEIXEIRA MD Aug 23, 2019 14:12
--- NOTE | 2019-08-23 14:45 | NUR ---
Discharge instructions given with prescriptions. Answered questions and concerns. Both pt and spouse verbalized understanding. Demonstrated how to change dressings and extra dressing supplies given. LSO brace on. Pain med given prior to discharge.
--- NOTE | 2019-08-26 14:08 | PATHOLOGY ---
[facility] Accession Number: [id number] . 01 Material submitted: . vertebral column - LUMBAR DISC AND DECOMPRESSION . 01 Clinical history: . Lumbar herniated disc and radiculopathy . 02 Diagnosis: Segments of fibrocartilaginous tissue and bone, lumbar disc and decompression: - Degenerative changes of fibrocartilaginous tissue. . (JPM:mm; 08/26/2019) M 08/26/2019 1202 Local . 02 Comment: There is no evidence of an acute inflammatory process or malignancy. . (JPM:mml; 08/26/2019) . 02 Electronically signed: . Mazin Hein MD, Pathologist NPI- [id number] . 01 Gross description: . Received in formalin labeled "[place] Sauer, lumbar disc and decompression," are several pieces of glistening, fibrous tissue measuring 4.5 x 3.4 x 1.9 cm in aggregate dimensions, containing small fragments of possible bone. The tissue is submitted representatively in cassette A1, following decalcification. (TSD; 08/23/2019) TOB/TOB 08/23/2019 1756 Local . 02 Pathologist provided ICD-10: M51.36 . 02 CPT . 723155, [id number] Specimen Comment: A courtesy copy of this report has been sent to Specimen Comment: [phone], . Specimen Comment: Report sent to / DR RAMIREZ Performed at: 01 [facility] [address], [place], [place] [id number] MD Josesito Mackay MD Phone: [phone] Performed at: 02 [facility] [address] [place], [place] [id number] MD Mazin Hein MD Phone: [phone]
--- NOTE | 2019-08-28 00:56 | OP ---
DATE OF SURGERY: 08/22/2019 PREOPERATIVE DIAGNOSES: 1. Six previous lumbar surgeries. 2. Recurrent herniated disk, L3-L4, right. 3. Foraminal disk bulge with nerve root contact, right L2-L3. OPERATION PERFORMED: Posterior instrumentation, L2, L3, L4. Posterolateral fusion, L2, L3, L4. Anterior diskectomy, L3-L4. Anterior interbody fusion with interbody fusion cage packed with allograft and autograft bone, L3-L4. Hemilaminotomy/transfacet exposure, L2-L3, right with decompression of the right L2 and L3 nerve roots. Hemilaminotomy and microdiskectomy, L3-L4, right, with removal of recurrent herniated disk and decompression of dura and nerve root. The operation was done with EMG monitoring, SSEP monitoring, stimulated EMG monitoring, fluoroscopy, microscopic dissection, BrainLAB guidance. WEB PRESSMAN: Madeleine Raymond APRN, assisted with the surgery. She assisted with the instrumentation and decompression. OPERATIVE INDICATIONS: The patient is a pleasant 59-year-old man, who has undergone a total of 6 previous lumbar surgeries, most recently a surgery for a disk herniation at L3-L4 on the right, for which he did well for many months and then the pain returned. On imaging studies, he had the above-mentioned findings and at this point, I recommended an instrumented lumbar fusion to hopefully deal with these problems at L2, L3, L4 and obviate the need for any further surgery here. He understood the surgery, the risks, the technique, and he wished to go ahead. DESCRIPTION OF PROCEDURE: Following general endotracheal anesthesia, the patient was positioned prone on the David table. Lumbar region prepped and draped in a standard fashion. JASON hose and AV impulse boots were applied for DVT prophylaxis. The microscope was draped. Fluoroscopy was draped and brought into the field. Monitoring was established. Ancef 2 grams was given in less than 1 hour prior to the initiation of surgery. An incision was made over the left iliac crest and the BrainLAB posts were placed and the BrainLAB system was initialized. I then made a midline incision extending from upper L2 to inferior L4 and reflected the paraspinal muscles. On the left side, I exposed the facets and then the lateral gutters of transverse processes of L2, L3, L4. I used the BrainLAB system and anatomic landmarks and drilled at the posterior aspect of the pedicles of L2, L3, and L4, followed by the black ball, followed by ball tip probe, followed by tap, followed by screw placement. I did use the Need Fixeder spine system and the screws on this side were 6.5 in diameter. During this time, I excoriated the transverse processes and lateral facets. I aspirated 20 mL of bone marrow from the left iliac crest and after mixing this thoroughly with allograft bone, I passed this into the left lateral gutter. I then went to the right side and performed a similar exposure. On the right side, I did pack bone into the right lateral gutter after excoriation of the transverse processes. I did place the superior screw at L2, which was a 5.5 screw and then at this point, I then brought in the microscope and beginning at L3-L4, I burred down a hemilaminotomy, enlarging the previous laminotomy of previous surgery at L3-L4 on the right. I exposed the dura and enlarged the foraminotomy exposing the traversing L4 root. I did work laterally and exposed the lateral edge of the common dural sac. I visualized the L3 root as it rounded the pedicle and moved laterally and I incised the annulus and performed diskectomy with pituitary rongeurs and fully decompressed the region. I then moved up to L2-L3 and in a similar fashion, burred down a generous hemilaminotomy. I then worked laterally over and into the facets until I was able to easily pass a [place] [facility] out along the course of the nerve root far into the facet and assured myself that there was no significant nerve root compression. Following this, I made an incision in the right flank and passed the BrainLAB with a sheath down to dock at a lateral aspect of the transverse process of L4 and then moved superiorly to enter the disk space. I assured that the lateral roots were free. I passed the K-wire, followed by a dilator, followed by working channel, and then through this, I performed diskectomy at L3-L4. I did scrape cartilaginous endplate. I then passed a protective shield to protect the far lateral root and then after passing manually bone into the disk space, I tapped in a 9-mm interbody fusion cage, which was packed with allograft and autograft bone. The autograft bone I obtained from the decompression work. Once the cage was in position, then I released the cage. I did confirm my positions fluoroscopically. I placed the screw in L3 and L4, placed the jackson and then torqued the construct on each side sequentially. I irrigated copiously with antibiotic solution. I felt I had an excellent decompression of the nerve root. The fusion appeared excellent. The films looked good. I irrigated copiously and I closed the wound in layers with absorbable suture and the skin was closed with skin kj. The operation went very well. The patient awakened uneventfully, taken to recovery room in excellent condition with normal strength in his lower extremities. I was quite pleased with the surgery. OLY TEIXEIRA MD DR: CARROL/juan carlos JOB#: [id number] / [id number]
== END 2019-08-23 14:45 | disposition home or self-care (01) | DRG 455 ==
LOC: OPSVCIP 08-22 05:55 → 4 SOUTHEST 08-22 16:31
PROVIDERS: ADMIT Neurological Surgery; ATTEND Neurological Surgery
PROC: 0SG00A0 Fusion of Lumbar Vertebral Joint with Interbody Fusion Device, Anterior Approach, Anterior Column, Open Approach (ICD-10-PCS; 2019-08-22)
PROC: 0SB20ZZ Excision of Lumbar Vertebral Disc, Open Approach (ICD-10-PCS; 2019-08-22)
PROC: 01NB0ZZ Release Lumbar Nerve, Open Approach (ICD-10-PCS; 2019-08-22)
PROC: 07DR0ZZ Extraction of Iliac Bone Marrow, Open Approach (ICD-10-PCS; 2019-08-22)
PROC: 4A11X4G Monitoring of Peripheral Nervous Electrical Activity, Intraoperative, External Approach (ICD-10-PCS; 2019-08-22)
PROC: 0SG1071 Fusion of 2 or more Lumbar Vertebral Joints with Autologous Tissue Substitute, Posterior Approach, Posterior Column, Open Approach (ICD-10-PCS; principal; 2019-08-22 08:30)
DX: M51.16 Intervertebral disc disorders with radiculopathy, lumbar region (principal); G43.909 Migraine, unspecified, not intractable, without status migrainosus; I10 Essential (primary) hypertension; Z82.49 Family history of ischemic heart disease and other diseases of the circulatory system; Z86.14 Personal history of Methicillin resistant Staphylococcus aureus infection; Z79.899 Other long term (current) drug therapy
CPT/HCPCS: 36415; 72131; 76000; 86850; 86900; 86901; 88304; 88311; A7015; C1713; J0690; J0696; J1100; J1885; J2001; J2250; J2405; J2704; J3010; J3490; J7030; J7120; G0378